=== PATIENT | female | born 1965 | race American Indian/Alaskan Native ===

== ENCOUNTER 2016-09-25 08:44 | Outpatient (CLI) | payer OTHER ==
--- NOTE | 2016-09-25 10:16 | Ultrasound Report ---
LEFT DIGITAL DIAGNOSTIC MAMMOGRAM and LEFT BREAST ULTRASOUND: 09/25/16 08:44:00 CLINICAL: Nodular density on screening mammogram. 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 No mass, cyst or shadowing to correlate with the mammographic finding. MLO, LM and CC views of the left breast without and with magnification were performed. A low density partially circumscribed oval density is identified in the inner breast on the CC views. However, no definite correlation is identified on MLO or lateral views with magnification. . IMPRESSION: A probably benign left asymmetry identified well on only one view of the mammogram with a negative ultrasound. BI-RADS CATEGORY: 3 - - Probably Benign RECOMMENDATION: Six month followup left mammogram and ultrasound if needed. I discussed the findings and the importance of followup mammogram with the patient at the time of the exam. ACR BI-RADS MAMMOGRAPHIC CODES: 0 = Needs additional imaging evaluation; 1 = Negative; 2 = Benign; 3 = Probably benign; 4 = Suspicious; 5 = Malignant; 6 = Known biopsy-proven malignancy COMMENT: 1. Dense breast tissue, i.e., adenosis, fibrocystic changes, etc., may obscure an underlying neoplasm. 2. Approximately 10% of cancers are not detected with mammography. 3. A negative mammography report should not delay biopsy if a clinically suspicious mass is present. COMMENT: Patient follow-up letters are generated by our [employer] application.
== END 2016-09-25 08:45 | disposition home or self-care (01) ==
LOC: SPVWC 08:44
PROVIDERS: ATTEND Obstetrics & Gynecology
DX: N64.89 Other specified disorders of breast (principal)
CPT/HCPCS: 76641; G0206

== ENCOUNTER 2017-03-18 11:09 | Outpatient (CLI) | payer OTHER ==
--- NOTE | 2017-03-18 11:41 | Mammography Report ---
LEFT DIGITAL DIAGNOSTIC MAMMOGRAM with CAD: 03/18/17 11:09:00 CLINICAL: Six month followup asymmetry. COMPARISON:09/25/16 FINDINGS: Stable low-density oval nodular density on the CC view. Again, it is not identified on MLO view. No architectural distortion or suspicious calcifications. IMPRESSION: Stable probably benign asymmetry. BI-RADS CATEGORY: 3 - - Probably Benign RECOMMENDATION: Bilateral mammogram in six months when she is due for routine screening of the right breast. ACR BI-RADS MAMMOGRAPHIC CODES: 0 = Needs additional imaging evaluation; 1 = Negative; 2 = Benign; 3 = Probably benign; 4 = Suspicious; 5 = Malignant; 6 = Known biopsy-proven malignancy COMMENT: 1. Dense breast tissue, i.e., adenosis, fibrocystic changes, etc., may obscure an underlying neoplasm. 2. Approximately 10% of cancers are not detected with mammography. 3. A negative mammography report should not delay biopsy if a clinically suspicious mass is present. COMMENT: Patient follow-up letters are generated by our [employer] application.
== END 2017-03-18 11:10 | disposition home or self-care (01) ==
LOC: SPVWC 11:09
PROVIDERS: ATTEND Obstetrics & Gynecology
DX: N64.89 Other specified disorders of breast (principal)
CPT/HCPCS: G0206-LT